=== PATIENT | female | born 1945 | race Caucasian/White ===

== ENCOUNTER 2018-12-24 18:08 | Observation (INO) | payer MEDICARE, BC, OTHER ==
--- NOTE | 2018-12-24 19:13 | RAD ---
PORTABLE CHEST 12/24/18 PROVIDED CLINICAL HISTORY: Dyspnea. FINDINGS: Comparison 08/14/15. The cardiac silhouette appears enlarged. Prominence of the pulmonary vasculature and pulmonary inte rstitium. Left subclavian cardiac pacing device in similar position. No focal consolidation, pleural fluid or pneumothorax apparent. Poor visualization of the left hemidiaphragm is likely on the basis of patient body habitus and cardiomegaly. Left basilar pleural and/or parenchymal opacity cannot be e ntirely excluded. IMPRESSION: Cardiomegaly and prominence of the pulmonary vasculature. Correlate with concerns for congestive kadi lure. POS: JOSELYN
[2018-12-24 19:24] LABS: #Eosinphils 0.1 thou/uL (0.0-0.7); #Lymphocytes 0.9 thou/uL (1.20-3.40); #Monocytes 0.3 thou/uL (0.11-0.59); #Neutrophils 3.5 thou/uL (1.40-6.50); %Basophils 0.7 % (0.0-1.0); %Eosinophils 2.1 % (0.0-10.0); %Lymphocytes 18.1 % (21.0-51.0); %Monocytes 5.2 % (0.0-10.0); Hemoglobin 9.6 g/dL (12.0-16.0); Mean Corpuscular HGB CONC 30.7 g/dL (32.0-36.0); Mean Corpuscular Hemoglobin 31.9 pg (27.0-31.0); Mean Platelet Volume 9.1 fL (7.4-10.4); Platelet Count 214 thou/uL (130-400); RBC Distribution Width 15.6 % (11.5-14.5); White Blood Cell (WBC) Count 4.7 thou/uL (4.8-10.8)
[2018-12-24 19:45] LABS: ALT (SGPT) 27 U/L (8-55); AST (SGOT) 87 U/L (5-34); Albumin 2.7 g/dL (3.4-4.8); Alkaline Phosphatase 230 U/L (40-150); Anion Gap 15 mmol/L (10-20); BUN (Urea Nitrogen) 28 mg/dL (9.8-20.1); Bilirubin, Total 0.8 mg/dL (0.2-1.2); Calc. Creatinine Clearance 0 mL/min (70-130); Calcium 7.7 mg/dL (7.8-10.44); Carbon Dioxide 25 mmol/L (23-31); Chloride 101 mmol/L (98-107); Estimated GFR-MDRD 55; Globulin 3.2 g/dL (2.4-3.5); Glucose 112 mg/dL (83-110); Potassium 4.3 mmol/L (3.5-5.1); Protein, Total 5.9 g/dL (6.0-8.3); Sodium 137 mmol/L (136-145)
[2018-12-24] MEDS ORDERED: Furosemide 40 MG/4 ML VIAL ONE (20:56)
[2018-12-24 23:15] LABS: Troponin I Less than 0.010 ng/mL (< 0.028)
[2018-12-24 23:37] VITALS: BMI 30.7
[2018-12-25 02:37] LABS: Troponin I Less than 0.010 ng/mL (< 0.028)
[2018-12-25] MEDS ORDERED: HYDROcodone/Acetaminophen 10/325 mg Tablet PO PRN (08:50)
[2018-12-25] MEDS ORDERED: Acetaminophen 325 MG TAB PO PRN (09:05)
[2018-12-25] MEDS ORDERED: Calcium Carbonate 500 MG ChewTAB PO PRN (09:05)
[2018-12-25] MEDS ORDERED: Nitroglycerin 0.4 MG TAB (25 Tab Bottle) PO PRN (09:09)
[2018-12-25] MEDS ORDERED: cloNIDine 0.1 MG TAB PO PRN (09:10)
[2018-12-25] MEDS ORDERED: Diazepam 5 MG TAB PO PRN (10:12)
[2018-12-25] MEDS ORDERED: Aspirin 81 mg Enteric Coated Tablet PO SCH (10:30)
[2018-12-25] MEDS ORDERED: Spironolactone 25 MG TAB PO SCH (10:30)
[2018-12-25] MEDS ORDERED: Multivit, Therapeutic 1 TAB PO SCH (10:30)
[2018-12-25] MEDS ORDERED: Gabapentin 300 MG CAP PO SCH ×2 (10:30→15:00)
[2018-12-25] MEDS: Apixaban 5 MG TAB PO SCH ×2 (10:30→20:18)
[2018-12-25] MEDS ORDERED: Lisinopril 5 MG TAB PO SCH (10:30)
[2018-12-25] MEDS ORDERED: Folic Acid 1 MG TAB PO SCH (10:30)
[2018-12-25] MEDS: Furosemide 40 MG/4 ML VIAL SLOW IVP SCH ×2 (10:30→16:14)
[2018-12-25] MEDS ORDERED: Carvedilol 6.25 MG TAB PO SCH ×2 (10:30→21:00)
[2018-12-25] MEDS ORDERED: FLUoxetine HCl 20 MG CAP PO SCH (10:30)
[2018-12-25] MEDS ORDERED: Sotalol HCl 80 MG TAB PO SCH (10:30)
[2018-12-25] MEDS: Ipratropium Bromide 2.5 ml Neb NEB SCH ×4 (11:12→22:12)
[2018-12-25] MEDS: Mometasone/Formoterol 120 PUFF INHALER INH SCH (18:33)
[2018-12-25] MEDS: Sotalol HCl 80 MG TAB PO SCH (20:19)
[2018-12-25] MEDS: Lisinopril 5 MG TAB PO SCH (20:19)
[2018-12-25] MEDS: FLUoxetine HCl 20 MG CAP PO SCH (20:19)
[2018-12-25] MEDS: Carvedilol 6.25 MG TAB PO SCH (20:20)
[2018-12-25] MEDS: Senokot S 8.6-50 MG TAB PO SCH (20:20)
[2018-12-26] MEDS: Furosemide 40 MG/4 ML VIAL SLOW IVP SCH ×2 (00:37→09:29)
[2018-12-26] MEDS: Ipratropium Bromide 2.5 ml Neb NEB SCH ×2 (02:25→08:03)
[2018-12-26 04:41] LABS: #Basophils 0.1 thou/uL (0.0-0.2); #Eosinphils 0.2 thou/uL (0.0-0.7); #Lymphocytes 1.6 thou/uL (1.20-3.40); #Monocytes 0.7 thou/uL (0.11-0.59); #Neutrophils 4.6 thou/uL (1.40-6.50); %Basophils 0.9 % (0.0-1.0); %Eosinophils 2.6 % (0.0-10.0); %Lymphocytes 22.4 % (21.0-51.0); %Monocytes 9.4 % (0.0-10.0); %Neutrophils 64.7 % (42.0-75.0); Hemoglobin 9.8 g/dL (12.0-16.0); Mean Corpuscular HGB CONC 31.4 g/dL (32.0-36.0); Mean Corpuscular Hemoglobin 31.9 pg (27.0-31.0); Mean Platelet Volume 8.5 fL (7.4-10.4); Platelet Count 224 thou/uL (130-400); Red Blood Cell (RBC) Count 3.06 mill/uL (4.20-5.40); White Blood Cell (WBC) Count 7.1 thou/uL (4.8-10.8)
[2018-12-26 05:01] LABS: ALT (SGPT) 25 U/L (8-55); AST (SGOT) 63 U/L (5-34); Alkaline Phosphatase 192 U/L (40-150); Anion Gap 14 mmol/L (10-20); BUN (Urea Nitrogen) 26 mg/dL (9.8-20.1); Bilirubin, Total 0.8 mg/dL (0.2-1.2); Calc. Creatinine Clearance 77 mL/min (70-130); Calcium 8.4 mg/dL (7.8-10.44); Carbon Dioxide 29 mmol/L (23-31); Chloride 98 mmol/L (98-107); Estimated GFR-MDRD 55; Globulin 3.3 g/dL (2.4-3.5); Glucose 99 mg/dL (83-110); Magnesium 1.5 mg/dL (1.6-2.6); Potassium 3.2 mmol/L (3.5-5.1); Protein, Total 6.3 g/dL (6.0-8.3); Sodium 138 mmol/L (136-145)
[2018-12-26 05:23] VITALS: TEMP 97.6
--- NOTE | 2018-12-26 07:06 | PDOC.EVN ---
Event Note - Event Note Event Note: H&P dictated on 12/25
[2018-12-26] MEDS ORDERED: Magnesium 2 GM/50 ML 2 GM in Premix Bag 1 BAG IVPB SCH (07:30)
[2018-12-26 07:43] LABS: Phosphorus 2.8 mg/dL (2.3-4.7)
[2018-12-26] MEDS: Mometasone/Formoterol 120 PUFF INHALER INH SCH (08:13)
[2018-12-26] MEDS ORDERED: Folic Acid 1 MG TAB PO SCH (09:00)
[2018-12-26] MEDS ORDERED: Aspirin 81 mg Enteric Coated Tablet PO SCH (09:00)
[2018-12-26] MEDS ORDERED: Spironolactone 25 MG TAB PO SCH ×2 (09:00)
[2018-12-26] MEDS ORDERED: Multivit, Therapeutic 1 TAB PO SCH ×2 (09:00)
[2018-12-26] MEDS: Potassium Chloride 20 MEQ TAB PO SCH ×2 (09:19→10:33)
[2018-12-26] MEDS: Apixaban 5 MG TAB PO SCH (09:20)
[2018-12-26] MEDS: FLUoxetine HCl 20 MG CAP PO SCH (09:21)
[2018-12-26] MEDS: Carvedilol 6.25 MG TAB PO SCH (09:21)
[2018-12-26] MEDS: Senokot S 8.6-50 MG TAB PO SCH (09:22)
[2018-12-26] MEDS: Lisinopril 5 MG TAB PO SCH (09:22)
[2018-12-26] MEDS: Sotalol HCl 80 MG TAB PO SCH (09:23)
[2018-12-26 09:25] VITALS: BP 123/68
--- NOTE | 2018-12-26 15:09 | HP ---
PRIMARY CARE PHYSICIAN: Dr. Angel Child. PRIMARY SUPERVISOR AREA: Dr. Morris at [facility]. CHIEF COMPLAINT: Shortness of breath. HISTORY OF PRESENT ILLNESS: The patient is a 73-year-old white female with coronary artery disease, sick sinus syndrome, status post pacemaker, paroxysmal atrial fibrillation, on anticoagulation, and chronic systolic heart failure with ejection fraction of 40% range, presented to the hospital with above complaints. The patient was recently diagnosed with swallow dysfunction at [facility]. A barium swallow was ordered. She has dysphagia to both solids and liquids. Yesterday, she has sudden onset of shortness of breath when she was walking to the bedroom from the bathroom. She was cyanotic according to her . She is currently on 2 to 3 L of home oxygen. There was no significant wheezing, chest pain, palpitations, or syncope reported. The patient also noticed bilateral lower extremity swelling over the last 2 to 3 days. She also gets short of breath on minimal exertion. She is compliant with all of her medications including Lasix, spironolactone, and lisinopril. She is also on sotalol for AFib. She has not been eating and drinking well recently due to swallow dysfunction. No fever or chills or cough reported. The patient received albuterol nebulizer treatment, IV steroids, 2 g magnesium, and IV fluid by EMS prior to ER arrival. The symptoms partially improved with above measures. Initial vitals per EMS showed pulse rate of 120 with respirations of 34, and blood pressure of 153/113. PAST MEDICAL HISTORY: 1. Chronic systolic heart failure, ejection fraction 40% range. The patient had an echocardiogram on November 12, 2018, that showed ejection fraction of 40% with global hypokinesis and mild diastolic dysfunction. She also had cfco-wv-czfybmhj tricuspid regurgitation. 2. Paroxysmal atrial fibrillation, on anticoagulation. 3. Obstructive sleep apnea, on CPAP. 4. Chronic hypoxic respiratory failure, on home oxygen. 5. Chronic obstructive pulmonary disease. 6. History of pleural effusion, requiring thoracentesis. 7. Dyam-qc-ooziibgt tricuspid regurgitation. 8. Rheumatoid arthritis. 9. Hypertension. 10. Peripheral neuropathy. 11. Chronic low back pain. 12. Depression. 13. Coronary artery disease, status post stent placement and TN. 14. Pulmonary hypertension. 15. Sick sinus syndrome, status post pacemaker. 16. CKD, stage 3. 17. Seasonal allergies. 18. Intolerant to amiodarone due to pulmonary disease. 19. Sensorineural bilateral hearing loss. 20. Recent diagnosis of swallow dysfunction, scheduled for barium swallow next week. 21. Mild cognitive deficit. 22. History of CVA without deficits. 23. Visual disturbance. PAST SURGICAL HISTORY: 1. Cardiac catheterization. 2. Pacemaker placement. 3. Tonsillectomy. 4. Thoracentesis. 5. Total abdominal hysterectomy. 6. Cholecystectomy. 7. Back surgery. CURRENT HOME MEDICATIONS: Family to bring accurate list of medications. The patient is unable to recall any of her home medications. She states that she is compliant with Eliquis, Lasix, lisinopril, and Aldactone. We will verify with when he arrives. ALLERGIES: NO KNOWN DRUG ALLERGIES. SOCIAL HISTORY: The patient currently lives at home with her family. Her is the decision maker. She quit smoking in 1985. She smoked up to one pack a day. She is full code. FAMILY HISTORY: Heart disease runs in the family. Father had CVA. REVIEW OF SYSTEMS: All other review of systems were reviewed and were found negative. PHYSICAL EXAMINATION: VITAL SIGNS: In the emergency room showed temperature 98.3, respirations 24, pulse rate of 81, and blood pressure of 125/85 with O2 saturation of 100% on 3 L nasal cannula. GENERAL: A 73-year-old female in mild respiratory distress, able to complete short phrases. HEENT: Head; atraumatic, normocephalic. Sclerae are anicteric. Moist mucous membrane. No oral lesion. NECK: Supple. No carotid bruit. JVD elevated. LUNGS: Showed bibasilar rales with scattered rhonchi. No wheezing appreciated. Minimal accessory muscle use. HEART: S1 and S2 present. Regular rate and rhythm. 2/6 systolic murmur over the mitral area. No heaves or pulsation. ABDOMEN: Soft and nontender. Bowel sounds present. No rebound or guarding. EXTREMITIES: 2+ edema in bilateral lower extremity. SKIN: Warm and dry. LYMPH NODES: No palpable lymph nodes in the neck. PERIPHERAL VASCULAR: Radial pulses palpable bilaterally. MUSCULOSKELETAL: No joint swelling or tenderness. SKIN: Warm and dry. PSYCHIATRY: Normal affect. Alert, awake, and oriented x3. NEUROLOGIC: Grossly nonfocal. Moves all 4 extremities. LABORATORY FINDINGS: WBC 4.7, hemoglobin 9.6, hematocrit 31.2, and platelet of 214. Chemistry showed sodium 137, potassium 4.3, chloride 101, bicarb 25, BUN 28, creatinine 0.9, and albumin 2.7. BNP was 4286. Troponin was negative. EKG by my review showed paced rhythm. Chest x-ray by my review showed pulmonary vascular congestion. There was no definite infiltrate. IMPRESSION: 1. Acute on chronic systolic/diastolic heart failure exacerbation, ACC, stage C. 2. Paroxysmal atrial fibrillation, on anticoagulation. 3. Coronary artery disease with stent placement to left anterior descending. 4. History of myocardial infarction. 5. Chronic obstructive pulmonary disease. 6. Chronic hypoxic respiratory failure, on home oxygen. 7. History of cerebrovascular accident with residual cognitive deficits. 8. Depression, mild, stable. 9. Hypertension. 10. Tmpu-by-nvtupteq tricuspid regurgitation. 11. Sick sinus syndrome, status post pacemaker. 12. Swallow dysfunction followed at [facility]. 13. Peripheral neuropathy. 14. Pulmonary hypertension. 15. Chronic low back pain. 16. Obstructive sleep apnea, on CPAP. 17. Intolerance to amiodarone due to pulmonary disease. PLAN: The patient will be monitored in the telemetry unit. We will start her on IV diuretics. We will continue other home medications including lisinopril, Eliquis, sotalol, and Aldactone once verified. Fluid restriction. Education on congestive heart failure. Continue O2 supplementation with p.r.n. nebulizer treatment. We will monitor labs on the daily basis. Plan of care was discussed with the patient in detail. She stated understanding. Job ID: [id number]
--- NOTE | 2018-12-27 13:02 | DIS ---
DATE OF ADMISSION: 12/24/2018 DATE OF DISCHARGE: 12/26/2018 DISCHARGE DISPOSITION: Home. FOLLOWUP: Follow up with Dr. Angel Child in 1 week. Follow up with Dr. Eduar Morris as scheduled. ALLERGIES: THE PATIENT IS ALLERGIC TO AUGMENTIN. THE PATIENT WAS SEEN AND EXAMINED ON THE DAY OF DISCHARGE. DENIES ANY NEW COMPLAINTS. NO CHEST PAIN, SHORTNESS OF BREATH, OR PALPITATIONS REPORTED. WEIGHT ON THE DAY OF DISCHARGE IS 213 POUNDS FROM 216 POUNDS. DISCHARGE MEDICATIONS: Same as admission medications, no changes were made. BRIEF HOSPITAL COURSE: The patient is a 73-year-old white female with coronary artery disease, paroxysmal atrial fibrillation on anticoagulation, chronic systolic heart failure with ejection fraction 40% range, and sick sinus syndrome status post pacemaker, presented to the hospital with shortness of breath. Please refer to the history and physical for further details. The patient was admitted to the hospital with a diagnosis of congestive heart failure exacerbation. She was started on IV Lasix 40 mg every 8 hourly with good improvement. After diuresis, the symptoms considerably improved. Weight on the day of discharge is 213 pounds from 216 pounds. Symptomatically, she feels great and is requesting to be discharged. She has a followup appointment with Dr. Morris. She also had potassium of 3.2 and magnesium 1.5 on the day of discharge. She received 2 g IV magnesium along with potassium supplementation. She will benefit from a repeat labs as outpatient. Her BNP on admission was 4286. Her creatinine on the day of discharge is 0.99. FINAL DIAGNOSES: 1. Acute on chronic systolic/diastolic heart failure. 2. Paroxysmal atrial fibrillation on anticoagulation. 3. Coronary artery disease status post left anterior descending stent placement. 4. History of myocardial infarction in the past. 5. Chronic obstructive pulmonary disease. 6. Chronic hypoxic respiratory failure on home oxygen. 7. History of cerebrovascular accident with residual cognitive deficit. 8. Depression, mild, stable. 9. Hypertension. 10. Intolerance to amiodarone due to pulmonary disease. 11. Obstructive sleep apnea on continuous positive airway pressure. 12. Chronic low back pain. 13. Pulmonary hypertension. 14. Peripheral neuropathy. 15. Swallow dysfunction. The patient is scheduled for a barium swallow later this week. 16. Sick sinus syndrome status post pacemaker. 17. Yfxw-nv-mkzvxwcj mitral regurgitation. PLAN: Plan of care was discussed with the patient and the family at the bedside, they stated understanding. Job ID: [id number]
== END 2018-12-26 11:11 | disposition home or self-care (01) ==
LOC: ERS 18:08 → 2SW 20:30
PROVIDERS: ADMIT Hospitalist; ATTEND Hospitalist
DX: I13.0 Hypertensive heart and chronic kidney disease with heart failure and stage 1 through stage 4 chronic kidney disease, or unspecified chronic kidney disease (principal); N18.3 Chronic kidney disease, stage 3 (moderate); I50.43 Acute on chronic combined systolic (congestive) and diastolic (congestive) heart failure; I48.0 Paroxysmal atrial fibrillation; I25.10 Atherosclerotic heart disease of native coronary artery without angina pectoris; I25.2 Old myocardial infarction; J96.11 Chronic respiratory failure with hypoxia; F32.9 Major depressive disorder, single episode, unspecified; J44.9 Chronic obstructive pulmonary disease, unspecified; T46.2X5A Adverse effect of other antidysrhythmic drugs, initial encounter; G47.33 Obstructive sleep apnea (adult) (pediatric); M54.5 Low back pain; G89.29 Other chronic pain; I27.20 Pulmonary hypertension, unspecified; I49.5 Sick sinus syndrome; F41.9 Anxiety disorder, unspecified; M06.9 Rheumatoid arthritis, unspecified; Z87.891 Personal history of nicotine dependence; Z86.73 Personal history of transient ischemic attack (TIA), and cerebral infarction without residual deficits; Z95.5 Presence of coronary angioplasty implant and graft; Z99.81 Dependence on supplemental oxygen; Z99.89 Dependence on other enabling machines and devices; Z79.01 Long term (current) use of anticoagulants; Z88.0 Allergy status to penicillin; Z88.1 Allergy status to other antibiotic agents; Z79.899 Other long term (current) drug therapy
CPT/HCPCS: 71045; 80053 ×2; 83735; 83880; 84100; 84484 ×3; 85025 ×2; 87040; 93005; 93798; 94640 ×5; 94760; 96374; 96375; 96376 ×2; 99285; G0378 ×2; 36415; J1940; J3475; J7620

== ENCOUNTER 2019-06-09 17:17 | Inpatient (IN) | payer MEDICARE, BC, OTHER ==
[~2019-06-09 17:17] MED LIST: Iopamidol-370 76% 500 ML 1 ML ONE
[2019-06-09 17:28] LABS: Actual Bicarbonate (HCO3a) 17.9 mEq/L (22-28); Analyzer IN Cardio ER; Base Excess (BEa) -7.9 mEq/L (-2.0 to +3.0); CO2 Tension 37.8 mmHg (35.0-45.0); Calcium, Ionized 1.16 mmol/L (1.12-1.30); Carboxyhemoglobin (COHb) 1.2 gm% (0.0-3.0); Hemoglobin (Hb) 14.1 g/dL (12.0-16.0); O2 Tension (PaO2) 174.3 mmHg (> 70.0); Potassium - ABG Lab 4.98 mmol/L (3.70-5.30); pH, Arterial 7.29 (7.35-7.45)
[2019-06-09 17:34] LABS: Puncture Site RBRACH
[2019-06-09 18:13] LABS: #Eosinphils 0.1 thou/uL (0.0-0.7); #Lymphocytes 1.4 thou/uL (1.20-3.40); #Monocytes 0.4 thou/uL (0.11-0.59); #Neutrophils 4.4 thou/uL (1.40-6.50); %Basophils 0.4 % (0.0-1.0); %Eosinophils 1.9 % (0.0-10.0); %Lymphocytes 22.5 % (21.0-51.0); %Monocytes 5.8 % (0.0-10.0); %Neutrophils 69.5 % (42.0-75.0); Hemoglobin 13.2 g/dL (12.0-16.0); Mean Corpuscular HGB CONC 30.9 g/dL (32.0-36.0); Mean Corpuscular Hemoglobin 29.6 pg (27.0-31.0); Mean Corpuscular Volume 95.9 fL (78.0-98.0); Mean Platelet Volume 8.3 fL (7.4-10.4); Platelet Count 322 thou/uL (130-400); RBC Distribution Width 16.1 % (11.5-14.5); Red Blood Cell (RBC) Count 4.48 mill/uL (4.20-5.40); White Blood Cell (WBC) Count 6.3 thou/uL (4.8-10.8)
--- NOTE | 2019-06-09 18:14 | RAD ---
PORTABLE CHEST ONE VIEW: 06/09/19 at 6:01 p.m. HISTORY: Dyspnea, COPD. Patient on C-Pap. FINDINGS/IMPRESSION: Comparison made with exam of 12/24/18. The heart is enlarged. Left sided pacing device remains in place. The lungs are well expanded with st able chronic changes. No lobar consolidation, pneumothoraces, jenae pulmonary edema, or large effusio ns are seen. POS: JEANETTEH
[2019-06-09 18:21] LABS: INR-International Normal Ratio 2.2; Prothrombin Time 24.5 SEC (12.0-14.7)
[2019-06-09 18:38] LABS: ALT (SGPT) 16 U/L (8-55); AST (SGOT) 68 U/L (5-34); Albumin 3.5 g/dL (3.4-4.8); Alkaline Phosphatase 203 U/L (40-110); Anion Gap 22 mmol/L (10-20); BUN (Urea Nitrogen) 16 mg/dL (9.8-20.1); Bilirubin, Total 1.4 mg/dL (0.2-1.2); CK (CPK) 15 U/L (29-168); Calc. Creatinine Clearance 0 mL/min (70-130); Calcium 8.7 mg/dL (7.8-10.44); Carbon Dioxide 19 mmol/L (23-31); Chloride 103 mmol/L (98-107); Estimated GFR-MDRD 41; Globulin 2.9 g/dL (2.4-3.5); Glucose 133 mg/dL (83-110); Potassium 4.7 mmol/L (3.5-5.1); Protein, Total 6.4 g/dL (6.0-8.3); Sodium 139 mmol/L (136-145)
[2019-06-09] MEDS ORDERED: Acetaminophen 325 MG TAB PO PRN (19:44)
[2019-06-09] MEDS ORDERED: Bisacodyl 10 MG SUPP PR PRN (19:44)
[2019-06-09] MEDS ORDERED: Bisacodyl 5 MG TAB PO PRN (19:44)
[2019-06-09] MEDS ORDERED: HYDROcodone/Acetaminophen 5/325 mg Tablet PO PRN (19:44)
--- NOTE | 2019-06-09 20:02 | PDOC.HHP ---
Hospitalist HPI - History of Present Illness Shortness of breath History of Present Illness: Patient is a 74 year old female with PMH CHF, afib, pacemaker, COPD who presents to ED for shortness of breath which onset over course of an hour around 3pm, reported she became cyanotic and less responsive, he called EMS and she was placed on BIPAP and given neb treatments x 2, brought to our ED. She normally goes to [facility] [place] and sees a wood carving lathe operator and unit aid there, she saw cardiology last month, had echo but they do not remember EF, she takes lasix and eliquius amongst other cardiac medications. She has 3 stents. No chest pain associated with current symptoms, no recorded fevers. In ED, patient maintained on BIPAP, CXR reported as without acute findings by radiology, ABG with hypoxia and wide Aa gradient, labs with high NT proBNP, sound physician consulted for admission Hospitalist ROS - Review of Systems ROS unobtainable: due to mental status Constitutional: denies: fever, chills Eyes: denies: vision change, redness ENT: denies: ear pain, mouth swelling, throat pain Respiratory: reports: shortness of breath. denies: cough, pleuritic pain, wheezing Cardiovascular: denies: chest pain, palpitations Gastrointestinal: denies: nausea, vomiting, abdominal pain, diarrhea Genitourinary: denies: dysuria, frequency Skin: denies: rash, lesions Neurological: denies: weakness, numbness All other systems reviewed; all pertinent +/- noted in HPI/Subj Hospitalist History - Past Medical History Other Medical History: CAD, A-Fib, Pulmonary HTN, Sick Sinus Syndrome,, Past medical history includes cardiac history, congestive heart failure, Past medical history includes history of hypertension.COPD. - Past Surgical History Other Surgical History: stent x 3, pacemaker - Family History Other Family History: reviewed and noncontributory - Social History Smoking Status: Never smoker Alcohol: reports: None Drugs: reports: none - Exam General Appearance: NAD, awake alert General - other findings: on bipap Eye: PERRL, anicteric sclera ENT: normocephalic atraumatic, moist mucosa Neck: supple, no JVD Heart: RRR, no murmur, no gallops, no rubs Respiratory: CTAB, no wheezes, no rales, no ronchi Respiratory - other findings: on bipap no wheezes or crackles Gastrointestinal: soft, non-tender, non-distended, normal bowel sounds Extremities: no cyanosis, no clubbing, 2+ LE edema Skin: no lesions, no rashes Neurological: cranial nerve grossly intact, normal sensation to touch, no focal deficits Musculoskeletal: normal tone, normal strength Psychiatric: normal affect, normal behavior, A&O x 3 Hospitalist Results - Labs Result Diagrams: 06/09/19 17:55 06/09/19 17:55 Lab results: WBC 6.3 thou/uL (4.8-10.8) 06/09/19 17:55 Hgb 13.2 g/dL (12.0-16.0) 06/09/19 17:55 Hct 42.9 % (36.0-47.0) 06/09/19 17:55 MCV 95.9 fL (78.0-98.0) 06/09/19 17:55 Plt Count 322 thou/uL (130-400) 06/09/19 17:55 Neutrophils % 69.5 % (42.0-75.0) 06/09/19 17:55 ABG pH 7.29 (7.35-7.45) L 06/09/19 17:30 ABG pCO2 37.8 mmHg (35.0-45.0) 06/09/19 17:30 ABG pO2 174.3 mmHg (> 70.0) H 06/09/19 17:30 Sodium 139 mmol/L (136-145) 06/09/19 17:55 Potassium 4.7 mmol/L (3.5-5.1) 06/09/19 17:55 Chloride 103 mmol/L (98-107) 06/09/19 17:55 Carbon Dioxide 19 mmol/L (23-31) L 06/09/19 17:55 BUN 16 mg/dL (9.8-20.1) 06/09/19 17:55 Creatinine 1.27 mg/dL (0.6-1.1) H 06/09/19 17:55 Glucose 133 mg/dL (83-110) H 06/09/19 17:55 Calcium 8.7 mg/dL (7.8-10.44) 06/09/19 17:55 Total Bilirubin 1.4 mg/dL (0.2-1.2) H 06/09/19 17:55 AST 68 U/L (5-34) H 06/09/19 17:55 ALT 16 U/L (8-55) 06/09/19 17:55 Alkaline Phosphatase 203 U/L (40-110) H 06/09/19 17:55 Creatine Kinase 15 U/L (29-168) L 06/09/19 17:55 Troponin I Less than 0.010 ng/mL (< 0.028) 06/09/19 17:55 B-Natriuretic Peptide 6295.1 pg/mL (0-100) H 06/09/19 17:56 Serum Total Protein 6.4 g/dL (6.0-8.3) 06/09/19 17:55 Albumin 3.5 g/dL (3.4-4.8) 06/09/19 17:55 - EKG Interpretation EKG: reviewed, paced, 80 bpm, no acute ST changes Hospitalist H&P A/P - Plan Plan: Patient is a 74 year old female with PMH CHF, afib, pacemaker, COPD who presents to ED for shortness of breath, being treated for: # acute hypoxic respiratory failure - with unimpressive CXR and ABG with wide A- a gradient, will do CT chest to rule out PE, patient on BIPAP at 10/5 and will be admitted to IMCU, elevated NT proBNP suggests CHF as contributing factor and will be treated for CHF exacerbation, no wheezes but with h/o COPD will initiate empiric treatment for exacerbation - admit to IMCU - lasix 80mg IV q8h - echo, consult cardiology and pulmonology - follow up CT chest - empiric solu-medrol and scheduled neb treatments, will start zosyn # acute and chronic CHF - order echo, consult cardiology, diurese as above, unknown EF as she normally goes to [place] # COPD w/ possible exacerbation - steroids, abx, nebs as above # atrial fibrillation w/ pacemaker - EKG w/ paced rhythm, continue beta rosita and eliquis 52 minutes critical care time, organ system failure requiring BIPAP to sustain life.
[2019-06-09] MEDS ORDERED: Diazepam 5 MG TAB PO PRN (21:16)
[2019-06-09] MEDS ORDERED: Mometasone/Formoterol 120 PUFF INHALER INH SCH (21:30)
[2019-06-09 21:48] LABS: Troponin I 0.051 ng/mL (< 0.028)
--- NOTE | 2019-06-09 22:24 | CT ---
Exam: CT angiogram of the chest HISTORY: Dyspnea. COPD. Congestive heart failure. COMPARISON: 07/25/2010 TECHNIQUE: CT angiogram of the chest is performed in the axial plane. Three-dimensional reformatted i mages are submitted for interpretation FINDINGS: Mediastinum: No mass, lymphadenopathy or hematoma. HEART: Cardiomegaly. No significant pericardial fluid. Reflux of contrast into the inferior vena cava suggesting right heart failure. Aorta: No aneurysm or dissection Upper solid abdominal viscera: No abnormality enhancement. Trachea and central bronchi: Patent Pleural spaces: Small bilateral pleural effusions. Lung parenchyma: Linear opacities in both lower lobes likely representing areas of scarring and atele ctasis. Linear opacities in the lingula and middle lobe also representing areas of scarring and atelectasis. More focal opacification in the middle lobe, measuring 1.7 cm x 0.7 cm. Focal infiltrate is favored. Patchy groundglass opacities are noted. Pneumothorax: None Osseous structures: No lytic or blastic lesions Pulmonary arteries: Adequate contrast opacification pulmonary arterial system to the level of segment al arteries. No filling defect to suggest pulmonary embolism IMPRESSION: 1. No evidence of pulmonary artery embolism to the level of segmental arteries 2. Cardiomegaly, patchy groundglass opacities and pleural effusion. Congestive heart failure. 3. Right heart failure. 4. Focal opacity in the middle lobe likely representing infiltrate. Continued surveillance to ensure resolution.
[2019-06-09] MEDS: Furosemide 100 MG/10 ML VIAL SLOW IVP SCH (22:58)
[2019-06-09] MEDS: methylPREDNISolone Sod Succ 40 MG VIAL IVP SCH (23:00)
[2019-06-09] MEDS: Piperacillin/Tazobactam 3.375 GM in Sodium Chloride 0.9% 100 ML IVPB SCH (23:01)
[2019-06-09] MEDS: Apixaban 5 MG TAB PO SCH (23:01)
[2019-06-09] MEDS: Famotidine 20 MG TAB PO SCH (23:01)
[2019-06-09] MEDS: Sotalol HCl 80 MG TAB PO SCH (23:02)
[2019-06-09] MEDS: Gabapentin 300 MG CAP PO SCH (23:02)
[2019-06-09] MEDS: Lisinopril 5 MG TAB PO SCH (23:02)
[2019-06-09] MEDS: FLUoxetine HCl 20 MG CAP PO SCH (23:02)
[2019-06-10 02:59] LABS: #Lymphocytes 0.9 thou/uL (1.20-3.40); #Monocytes 0.2 thou/uL (0.11-0.59); #Neutrophils 6.6 thou/uL (1.40-6.50); %Basophils 0.3 % (0.0-1.0); %Eosinophils 0.1 % (0.0-10.0); %Lymphocytes 11.2 % (21.0-51.0); %Monocytes 1.9 % (0.0-10.0); %Neutrophils 86.5 % (42.0-75.0); Hemoglobin 12.8 g/dL (12.0-16.0); Mean Corpuscular HGB CONC 32.2 g/dL (32.0-36.0); Mean Corpuscular Hemoglobin 30.4 pg (27.0-31.0); Mean Corpuscular Volume 94.4 fL (78.0-98.0); Platelet Count 240 thou/uL (130-400); White Blood Cell (WBC) Count 7.7 thou/uL (4.8-10.8)
[2019-06-10 03:22] LABS: Troponin I Less than 0.010 ng/mL (< 0.028)
[2019-06-10 03:37] LABS: Anion Gap 17 mmol/L (10-20); BUN (Urea Nitrogen) 17 mg/dL (9.8-20.1); Calc. Creatinine Clearance 58 mL/min (70-130); Calcium 8.9 mg/dL (7.8-10.44); Carbon Dioxide 24 mmol/L (23-31); Chloride 102 mmol/L (98-107); Estimated GFR-MDRD 47; Glucose 140 mg/dL (83-110); Magnesium 2.2 mg/dL (1.6-2.6); Potassium 3.4 mmol/L (3.5-5.1); Sodium 140 mmol/L (136-145)
[2019-06-10] MEDS: Furosemide 100 MG/10 ML VIAL SLOW IVP SCH (04:52)
[2019-06-10] MEDS: Piperacillin/Tazobactam 3.375 GM in Sodium Chloride 0.9% 100 ML IVPB SCH (05:00)
[2019-06-10] MEDS: methylPREDNISolone Sod Succ 40 MG VIAL IVP SCH ×2 (05:00→11:26)
[2019-06-10] MEDS: Mometasone/Formoterol 120 PUFF INHALER INH SCH ×2 (07:04→19:36)
[2019-06-10] MEDS: Gabapentin 300 MG CAP PO SCH ×3 (08:55→20:35)
[2019-06-10] MEDS: Lisinopril 5 MG TAB PO SCH ×2 (08:55→20:35)
[2019-06-10] MEDS: Famotidine 20 MG TAB PO SCH ×2 (08:55→20:35)
[2019-06-10] MEDS: Apixaban 5 MG TAB PO SCH ×2 (08:55→20:34)
[2019-06-10] MEDS: Spironolactone 25 MG TAB PO SCH (08:55)
[2019-06-10] MEDS: Carvedilol 6.25 MG TAB PO SCH ×2 (08:55→17:55)
[2019-06-10] MEDS: FLUoxetine HCl 20 MG CAP PO SCH ×2 (08:56→20:35)
[2019-06-10] MEDS ORDERED: Furosemide 100 MG/10 ML VIAL SLOW IVP SCH (09:00)
[2019-06-10] MEDS ORDERED: Enoxaparin Sodium 40 MG/0.4 ML SYRINGE SC SCH (09:00)
[2019-06-10 09:38] LABS: Troponin I Less than 0.010 ng/mL (< 0.028)
[2019-06-10] MEDS: Azithromycin 500 MG in Sodium Chloride 0.9% 250 ML 250 ML IVPB SCH (09:55)
[2019-06-10] MEDS: Sotalol HCl 80 MG TAB PO SCH ×2 (11:26→21:08)
[2019-06-10] MEDS: cefTRIAXone\\ROCEPHIN 2 GM in Sodium Chloride 0.9% 100 ML IVPB SCH (11:26)
--- NOTE | 2019-06-10 13:48 | PDOC.HOSPP ---
- Subjective Subjective: Seen and examined in intermediate medical care floor. Patient has been successfully weaned off the BiPAP by respiratory therapist. Patient saturating well on low-flow nasal cannula. Patient is talking in full sentences and in good spirits, making jokes. Patient states that she is feeling significantly better than when she arrived. Mild cough. Denies pain. All questions answered in detail. Patient's only other complaint at this time is that she is hungry. - Objective Vital Signs & Weight: Vital Signs (12 hours) Temp Pulse Resp BP Pulse Ox 06/10/19 12:00 98.4 F 06/10/19 11:26 80 157/91 H 06/10/19 08:55 80 157/91 H 06/10/19 07:06 97.6 F 06/10/19 07:04 80 22 H 95 06/10/19 03:09 97.0 F L Weight Weight 184 lb 12.8 oz Most Recent Monitor Data Heart Rate from ECG 80 NIBP 141/76 NIBP BP-Mean 97 Respiration from ECG 17 SpO2 96 I&O: 06/09/19 06/10/19 06/11/19 06:59 06:59 06:59 Intake Total 248 364 Output Total 2150 1200 Balance -8102 -036 Result Diagrams: 06/10/19 02:51 06/10/19 02:51 Radiology Reviewed by me: Yes Hospitalist ROS - Review of Systems All other systems reviewed; all pertinent +/- noted in HPI/Subj - Medication Medications: Active Medications Generic Name Dose Route Start Last Admin Trade Name Freq PRN Reason Stop Dose Admin Apixaban 5 mg 06/09/19 21:00 06/10/19 08:55 Eliquis PO 5 mg BID MANSI Administration Carvedilol 6.25 mg 06/10/19 08:00 06/10/19 08:55 Coreg PO 6.25 mg BID-WM MANSI Administration Famotidine 20 mg 06/09/19 21:00 06/10/19 08:55 Pepcid PO 20 mg BID MANSI Administration Fluoxetine HCl 20 mg 06/09/19 21:00 06/10/19 08:56 Prozac PO 20 mg BID MANSI Administration Gabapentin 300 mg 06/09/19 21:00 06/10/19 08:55 Neurontin PO 300 mg TID MANSI Administration Azithromycin 500 mg/ Sodium 250 mls @ 250 mls/hr 06/10/19 09:00 06/10/19 09: 55 Chloride IVPB 250 mls Q24HR MANSI Administration Ceftriaxone Sodium 2 gm/ 100 mls @ 100 mls/hr 06/10/19 10:00 06/10/19 11:26 Sodium Chloride IVPB 100 mls Q24HR MANSI Administration Lisinopril 5 mg 06/09/19 21:00 06/10/19 08:55 Zestril PO 5 mg BID MANSI Administration Mometasone Furoate/Formoterol Fumar 2 puff 06/10/19 06:30 06/10/19 07:04 Dulera 200 Mcg/5 Mcg Inhaler INH 2 puff BID-RT MANSI Administration Sodium Chloride 10 ml 06/10/19 09:00 06/10/19 08:56 Flush - Normal Saline IVF 10 ml Q12HR MANSI Administration Sotalol HCl 160 mg 06/09/19 21:00 06/10/19 11:26 Betapace PO 160 mg BID MANSI Administration Spironolactone 25 mg 06/10/19 09:00 06/10/19 08:55 Aldactone PO 25 mg DAILY MANSI Administration - Exam General Appearance: NAD, awake alert Eye: PERRL, anicteric sclera ENT: normocephalic atraumatic, moist mucosa Neck: supple, symmetric, no lymphadenopathy Heart: no murmur, no gallops, no rubs Respiratory: CTAB, no rales, no ronchi, wheezes (mild wheezing scattered) Gastrointestinal: soft, non-tender, non-distended, no guarding, no rigidity Extremities: no edema Skin: no lesions, no rashes Neurological: cranial nerve grossly intact, no focal deficits Musculoskeletal: generalized weakness Psychiatric: normal affect, normal behavior, oriented to person, oriented to place Hosp A/P (1) COPD exacerbation Code(s): J44.1 - CHRONIC OBSTRUCTIVE PULMONARY DISEASE W (ACUTE) EXACERBATION Status: Acute (2) Afib Code(s): I48.91 - UNSPECIFIED ATRIAL FIBRILLATION Status: Acute (3) CHF (congestive heart failure), NYHA class IV Code(s): I50.9 - HEART FAILURE, UNSPECIFIED Status: Acute (4) Pleural effusion Code(s): J90 - PLEURAL EFFUSION, NOT ELSEWHERE CLASSIFIED Status: Acute (5) Respiratory failure Code(s): J96.90 - RESPIRATORY FAILURE, UNSP, UNSP W HYPOXIA OR HYPERCAPNIA Status: Acute (6) Respiratory failure, acute and chronic Code(s): J96.20 - ACUTE AND CHR RESP FAILURE, UNSP W HYPOXIA OR HYPERCAPNIA Status: Acute - Plan Plan: IMCU, stable for medical unit telemetry pulmonology/critical-care consultation, recommendations appreciated cardiology consultation, recommendations appreciated patient initially placed on broad-spectrum IV antibiotics, de-escalated to pulmonary specific antibiotics with infiltrates seen on CT scan of the chest patient placed on IV steroids for possible COPD exacerbation, continue if indicated per pulmonology IV diuretic therapy with IV Lasix cardiomyopathy regimen echocardiogram continue other home medications as able blood sugar control blood pressure control DVT prophylaxis G.I. prophylaxis
--- NOTE | 2019-06-10 14:17 | CON ---
DATE OF CONSULTATION: 06/10/2019 SERVICE: Pulmonary Medicine REASON FOR CONSULTATION: Respiratory failure. HISTORY OF PRESENT ILLNESS: The patient is a 74-year-old white female with past medical history significant for heart failure and COPD. Either way, she was in her usual state of health until about 3 to 4 days ago when she started having increasing dyspnea on exertion and shortness of breath at baseline. She does not have orthopnea because she uses the CPAP. She noted increasing lower extremity swelling. She looked very bad on the day of presentation, and her said that she was blue. As such, EMS Services were contacted. She was found to be hypoxemic, and brought to the emergency department. Overnight, she was diuresed. She is looking much better this morning. She required the BiPAP last night, but once again, she typically uses CPAP in the evening time. She was having some low-grade temperatures, and some congestion in the head and face for the couple of days prior to coming to the hospital. She denies having any significant sick contacts. She denies any sputum production, belly pain, dysuria, frequency, or diarrhea. Otherwise, she is in her usual state of health and has no specific complaints. PAST MEDICAL HISTORY: 1. Coronary artery disease. 2. Atrial fibrillation, paroxysmal. 3. Sick sinus syndrome. 4. Chronic systolic heart failure. 5. Hypertension. 6. COPD. 7. Pulmonary hypertension. PAST SURGICAL HISTORY: 1. Percutaneous coronary intervention x3. 2. Pacemaker. FAMILY HISTORY: Noncontributory. SOCIAL HISTORY: She is a lifelong nonsmoker. She denies any alcohol or illicit drugs. She has no exposure to chemicals, dust, asbestos, or tuberculosis. Her primary car deliverer is at [facility]. ALLERGIES: AMOXICILLIN, CLAVULANIC ACID. REVIEW OF SYSTEMS: General, head, ears, eyes, nose, throat, cardiovascular, respiratory, GI, , musculoskeletal, neurologic, and skin are negative except as mentioned in the HPI. PHYSICAL EXAMINATION: VITAL SIGNS: Afebrile, pulse 80, blood pressure 157/91, respirations 16, and saturation 99% on 3 L nasal cannula. GENERAL: The patient is awake and alert, in no apparent distress. LUNGS: Decent air entry. There is a slightly prolonged expiratory phase. Crackles are noted. HEART: Normal rate. Regular. ABDOMEN: Soft, nontender, and nondistended. Bowel sounds are positive. MUSCULOSKELETAL: No cyanosis or clubbing. There is 1 to 2+ pitting throughout. NEUROLOGIC: Grossly nonfocal. LABORATORY DATA: WBC 7.7, hemoglobin 12.8, and platelets 240,000. INR 2.2. PH 7.29, pCO2 of 37, pO2 of 174 on 50% FiO2 at that time. Creatinine 1.13 and gently downtrending. Basic metabolic profile is otherwise unremarkable except for potassium of 3.4. Troponin is downtrending to 0.01, procalcitonin is elevated, BNP is historic high. Total bilirubin 1.4. Otherwise, liver function studies are not terribly abnormal. CK is unremarkable. Respiratory virus panel is negative. IMAGING STUDIES: CT of the chest demonstrates extensive reflux of contrast into the inferior vena cava. There is 4-chamber dilation of the heart. Bilateral small pleural effusions and pulmonary vascular congestion are both appreciated. The pulmonary artery appears to be enlarged. ASSESSMENT: 1. Acute on chronic hypoxic respiratory failure. 2. Chronic obstructive pulmonary disease with mild exacerbation. 3. Acute on chronic systolic and diastolic heart failure. 4. Pulmonary hypertension, likely owing to left heart disease. 5. Hypokalemia. DISCUSSION AND PLAN: We will continue to diurese the patient to euvolemia. I will replace her potassium and recheck tomorrow morning. Magnesium will also be checked. At this point, she is stable for transition to the floor. She will need to use her CPAP in that location. Steroids will be rapidly deescalated and limited to 5 days. Pulmonary/Critical Care will follow closely. 70 minutes have been devoted to this patient in various activities. I personally reviewed all imaging studies and laboratory data noted within this document. For fifty percent of this time, I was interacting with the patient at the bedside or coordinating care with the care team. For the remainder of the time I was immediately available to the patient in the hospital unit. Job ID: [id number] [facility]
--- NOTE | 2019-06-10 15:27 | CON ---
DATE OF CONSULTATION: 06/10/2019 PRIMARY DIESEL LOCOMOTIVE CRANE OPERATOR: Rohit Mcghee MD at [facility]. REASON FOR CONSULTATION: Heart failure. HISTORY OF PRESENT ILLNESS: Ms. Andersen is a very pleasant 74-year-old white female, who comes to the hospital for shortness of breath. called EMS as she looked purple and could not breathe. EMS got her. Her sats were in the 70s. She was started on supplemental oxygen and brought in. She was evaluated in the ER and diagnosed with both COPD exacerbation and heart failure, so she was admitted and given IV Lasix and she has diuresed quite a bit and she is already feeling better. On my evaluation, she states her breathing has significantly improved. Denies any chest pain, tightness, or pressure. She does have a history of ischemic cardiomyopathy, followed by Dr. Morris. The last time he saw her was about 3 weeks ago. Currently has no other complaints. PAST MEDICAL HISTORY: 1. Coronary artery disease. 2. Paroxysmal atrial fibrillation. 3. Sick sinus syndrome status post pacemaker placement. 4. Chronic systolic heart failure. 5. Hypertension. 6. COPD. 7. Pulmonary hypertension. SURGICAL HISTORY: 1. Percutaneous coronary intervention x3 to the LAD and left circumflex in the past. 2. Pacemaker placement. FAMILY HISTORY: Noncontributory. SOCIAL HISTORY: Never smoked. No alcohol or drugs. ALLERGIES: AMOXICILLIN AND CLAVULANIC ACID. OUTPATIENT MEDICATIONS: 1. Ipratropium and albuterol. 2. Aldactone 25 mg a day. 3. Sotalol 160 mg b.i.d. 4. Multivitamin daily. 5. Melatonin. 6. Magnesium oxide. 7. Loperamide. 8. Lisinopril 5 mg b.i.d. 9. Vicodin p.r.n. 10. Premarin. 11. Nexium. 12. Vitamin B12. 13. Coreg 6.25 b.i.d. 14. Symbicort. 15. Glucosamine and chondroitin. 16. Neurontin. 17. Lasix 40 mg b.i.d. 18. Folic acid. 19. Ferrous sulfate 325 a day. 20. Fluoxetine 20 mg b.i.d. 21. Diazepam. 22. Atorvastatin 10 mg nightly. 23. Eliquis 5 mg b.i.d. REVIEW OF SYSTEMS: A 12-point review of systems was done and was all negative unless stated in the history of present illness. PHYSICAL EXAMINATION: VITAL SIGNS: Temperature 98.4, pulse 80, respiratory rate 17, sat 96% on 2L nasal cannula, and blood pressure 128/64. GENERAL: Awake, alert, and oriented x3, in no distress. HEENT: Normocephalic and atraumatic. NECK: Supple. LUNGS: Reduced breath sounds bilaterally with mild crackles at the bases. CARDIOVASCULAR: S1 and S2. Distant heart sounds. No S3 or S4. No murmurs. ABDOMEN: Soft. Positive bowel sounds. EXTREMITIES: No edema. SKIN: Warm and dry. LABORATORY DATA: Laboratory work was reviewed. CBC with a white count of 6, hemoglobin 13, hematocrit 42, and platelet count of 322. Coags were reviewed. ABG was reviewed. Chemistries were reviewed. Potassium was 3.4 today. Troponin is negative x3. BNP was 6295. Procalcitonin was 4.1. Creatinine has improved from 1.2 to 1.1 with diuresis. Albumin was 3.5. EKG was reviewed. Telemetry was reviewed, paced rhythm. ASSESSMENT AND PLAN: 1. Wchfa-ci-obxharz systolic heart failure. 2. Severe ischemic dilated cardiomyopathy, ejection fraction at 20% to 25% on echo done today. 3. Chronic obstructive pulmonary disease with mild exacerbation. 4. Coronary artery disease, stable. No acute coronary syndrome. PLAN: 1. Continue IV diuresis. We would switch to 40 IV b.i.d. and then wean to 40 p.o. b.i.d. eventually. 2. We will interrogate pacemaker to make sure she is not in atrial fibrillation or has an underlying rhythm that may have precipitated heart failure. 3. Continue other heart failure medications. Thank you for letting us to participate in the care of your patient. We will follow. Job ID: [id number]
[2019-06-10] MEDS: Potassium Chloride 20 MEQ TAB PO SCH ×2 (15:50→17:55)
[2019-06-11 04:26] LABS: Anion Gap 10 mmol/L (10-20); BUN (Urea Nitrogen) 27 mg/dL (9.8-20.1); Calc. Creatinine Clearance 64 mL/min (70-130); Calcium 8.3 mg/dL (7.8-10.44); Carbon Dioxide 32 mmol/L (23-31); Chloride 101 mmol/L (98-107); Estimated GFR-MDRD 54; Glucose 118 mg/dL (83-110); Magnesium 1.8 mg/dL (1.6-2.6); Sodium 139 mmol/L (136-145)
[2019-06-11] MEDS: Furosemide 40 MG/4 ML VIAL SLOW IVP SCH ×2 (04:58→15:26)
[2019-06-11] MEDS: Carvedilol 6.25 MG TAB PO SCH ×2 (08:56→16:42)
[2019-06-11] MEDS: Apixaban 5 MG TAB PO SCH ×2 (08:57→20:22)
[2019-06-11] MEDS: predniSONE 20 MG TAB PO SCH (08:57)
[2019-06-11] MEDS: Azithromycin 500 MG in Sodium Chloride 0.9% 250 ML 250 ML IVPB SCH (08:57)
[2019-06-11] MEDS: Sotalol HCl 80 MG TAB PO SCH ×2 (08:57→20:21)
[2019-06-11] MEDS: Spironolactone 25 MG TAB PO SCH (08:58)
[2019-06-11] MEDS: Famotidine 20 MG TAB PO SCH ×2 (08:58→20:22)
[2019-06-11] MEDS: Lisinopril 5 MG TAB PO SCH ×2 (08:58→20:22)
[2019-06-11] MEDS: Gabapentin 300 MG CAP PO SCH ×3 (08:58→20:22)
[2019-06-11] MEDS: FLUoxetine HCl 20 MG CAP PO SCH ×2 (08:58→20:22)
[2019-06-11] MEDS ORDERED: Furosemide 40 MG/4 ML VIAL SLOW IVP SCH (09:00)
[2019-06-11] MEDS ORDERED: Furosemide 100 MG/10 ML VIAL IVPB SCH (09:00)
[2019-06-11] MEDS: cefTRIAXone\\ROCEPHIN 2 GM in Sodium Chloride 0.9% 100 ML IVPB SCH (09:09)
--- NOTE | 2019-06-11 09:16 | PRG ---
DATE OF SERVICE: 06/11/2019 SUBJECTIVE: Ms. Andersen feels better. She has been diuresing. No chest pain. OBJECTIVE: VITAL SIGNS: Her blood pressure is 127/90, pulse is 80. LUNGS: Clear. CARDIAC: Normal S1. Normal S2. ABDOMEN: Soft and nontender. EXTREMITIES: No edema. ASSESSMENT: 1. Congestive heart failure, systolic, acute on chronic, improving. 2. Previous pacemaker. 3. Coronary artery disease. PLAN: Continue current medical regimen. I believe the patient has a biventricular pacer. The complex is relatively narrow. Job ID: [id number]
[2019-06-11] MEDS: Mometasone/Formoterol 120 PUFF INHALER INH SCH ×2 (09:22→19:37)
--- NOTE | 2019-06-11 13:32 | PDOC.HOSPP ---
- Subjective Subjective: Seen and examined. Somnolence this a.m. Did not sleep well. Patient has her own CPAP, which is available at bedside and had last night however it was hooked up incorrectly and the patient also had nasal cannula on rather than feeding oxygen directly to her CPAP machine. Communication placed respiratory therapist to help assist in the correct usage of her CPAP machine this evening. Patient's at bedside who is in the medical field and retired understands and is happy with plan of care. Overall she is breathing much more comfortably. Denies pain. Tolerating diet. Patient and her have realistic expectations of goals of care. - Objective Vital Signs & Weight: Vital Signs (12 hours) Temp BP Pulse Ox 06/11/19 10:11 97.2 F L 06/11/19 09:22 98 06/11/19 08:56 127/90 06/11/19 07:53 98 06/11/19 07:12 98.0 F 06/11/19 03:26 98.1 F Weight Weight 181 lb Most Recent Monitor Data Heart Rate from ECG 80 NIBP 121/67 NIBP BP-Mean 85 Respiration from ECG 24 SpO2 99 I&O: 06/10/19 06/11/19 06/12/19 06:59 06:59 06:59 Intake Total 248 1954 Output Total 2158 2960 Balance -1636 -275 Result Diagrams: 06/10/19 02:51 06/11/19 03:34 Radiology Reviewed by me: Yes Hospitalist ROS - Review of Systems All other systems reviewed; all pertinent +/- noted in HPI/Subj - Medication Medications: Active Medications Generic Name Dose Route Start Last Admin Trade Name Archie PRN Reason Stop Dose Admin Apixaban 5 mg 06/09/19 21:00 06/11/19 08:57 Eliquis PO 5 mg BID MANSI Administration Carvedilol 6.25 mg 06/10/19 08:00 06/11/19 08:56 Coreg PO 6.25 mg BID-WM MANSI Administration Famotidine 20 mg 06/09/19 21:00 06/11/19 08:58 Pepcid PO 20 mg BID MANSI Administration Fluoxetine HCl 20 mg 06/09/19 21:00 06/11/19 08:58 Prozac PO 20 mg BID MANSI Administration Furosemide 40 mg 06/11/19 06:00 06/11/19 04:58 Lasix SLOW IVP 40 mg 0600,1400 MANSI Administration Gabapentin 300 mg 06/09/19 21:00 06/11/19 08:58 Neurontin PO 300 mg TID MANSI Administration Azithromycin 500 mg/ Sodium 250 mls @ 250 mls/hr 06/10/19 09:00 06/11/19 08: 57 Chloride IVPB 250 mls Q24HR MANSI Administration Ceftriaxone Sodium 2 gm/ 100 mls @ 100 mls/hr 06/10/19 10:00 06/11/19 09:09 Sodium Chloride IVPB 100 mls Q24HR MANSI Administration Lisinopril 5 mg 06/09/19 21:00 06/11/19 08:58 Zestril PO 5 mg BID MANSI Administration Mometasone Furoate/Formoterol Fumar 2 puff 06/10/19 06:30 06/11/19 09:22 Dulera 200 Mcg/5 Mcg Inhaler INH 2 puff BID-RT MANSI Administration Prednisone 20 mg 06/11/19 08:00 06/11/19 08:57 Prednisone PO 06/14/19 08:01 20 mg QAM-WM MANSI Administration Sodium Chloride 10 ml 06/10/19 09:00 06/11/19 08:59 Flush - Normal Saline IVF 10 ml Q12HR MANSI Administration Sotalol HCl 160 mg 06/09/19 21:00 06/11/19 08:57 Betapace PO 160 mg BID MANSI Administration Spironolactone 25 mg 06/10/19 09:00 06/11/19 08:58 Aldactone PO 25 mg DAILY MANSI Administration - Exam General Appearance: NAD Eye: PERRL, anicteric sclera ENT: normocephalic atraumatic, moist mucosa Neck: supple, symmetric, no lymphadenopathy Heart: no murmur, no gallops, no rubs Respiratory: CTAB, no ronchi, no tachypnea, rales, wheezes (Faint scattered) Gastrointestinal: soft, non-tender, non-distended, no guarding, no rigidity Extremities: no clubbing, no edema Skin: no lesions, no rashes Neurological: cranial nerve grossly intact, no focal deficits Musculoskeletal: generalized weakness Psychiatric: normal behavior, somnolent Hosp A/P (1) COPD exacerbation Code(s): J44.1 - CHRONIC OBSTRUCTIVE PULMONARY DISEASE W (ACUTE) EXACERBATION Status: Acute (2) Afib Code(s): I48.91 - UNSPECIFIED ATRIAL FIBRILLATION Status: Acute (3) CHF (congestive heart failure), NYHA class IV Code(s): I50.9 - HEART FAILURE, UNSPECIFIED Status: Acute (4) Pleural effusion Code(s): J90 - PLEURAL EFFUSION, NOT ELSEWHERE CLASSIFIED Status: Acute (5) Respiratory failure Code(s): J96.90 - RESPIRATORY FAILURE, UNSP, UNSP W HYPOXIA OR HYPERCAPNIA Status: Acute (6) Respiratory failure, acute and chronic Code(s): J96.20 - ACUTE AND CHR RESP FAILURE, UNSP W HYPOXIA OR HYPERCAPNIA Status: Acute - Plan Plan: IMCU, stable for medical unit telemetry pulmonology/critical-care consultation, recommendations appreciated cardiology consultation, recommendations appreciated pulmonary specific antibiotics with infiltrates seen on CT scan of the chest IV diuretic therapy with IV Lasix cardiomyopathy regimen echocardiogram continue other home medications as able blood sugar control blood pressure control DVT prophylaxis G.I. prophylaxis Disposition: patient improving on maximal medical therapy. Plan will be for discharge home with home healthcare in the next 2 to 3 days pending clinical improvement.
[2019-06-11] MEDS ORDERED: Loperamide HCl 1 MG/7.5 ML UDCUP PO PRN (16:51)
[2019-06-11] MEDS ORDERED: Magnesium 2 GM/50 ML 2 GM in Premix Bag 1 BAG IVPB SCH (17:00)
--- NOTE | 2019-06-11 17:15 | PRG ---
DATE OF SERVICE: 06/11/2019 SERVICE: Pulmonary medicine. INTERVAL HISTORY: The patient is doing really well from respiratory standpoint. She is breathing much more comfortably. She denies any current fevers, chills, or overnight events. Otherwise, there has been no interval change to her condition. She is having some diarrhea, which is chronic for her. She is specifically requesting Imodium, which she frequently takes at home. PHYSICAL EXAMINATION: VITAL SIGNS: Afebrile. Pulse 80, blood pressure 138/89, respirations 23, saturation 92%, currently on 2 L nasal cannula. GENERAL: The patient is awake and alert, in no apparent distress. LUNGS: Decent air entry. Dependent crackles are present. No prolonged expiratory phase appreciated. HEART: Normal rate and regular. ABDOMEN: Soft, nontender, nondistended. Bowel sounds are positive. MUSCULOSKELETAL: No cyanosis or clubbing. There is trace to 1+ pitting throughout in the bilateral lower extremities, but a little worse at the hips. LABORATORY DATA: Basic metabolic profile is completely unremarkable. Potassium 4.0, magnesium 1.8. Respiratory virus panel is unremarkable. IMAGING: Echocardiogram demonstrates 20% to 25% ejection fraction with 1/3 diastolic dysfunction. Right ventricular heart pressures are elevated. ASSESSMENT: 1. Acute on chronic hypoxic respiratory failure. 2. Chronic obstructive pulmonary disease with mild exacerbation. 3. Pulmonary hypertension, likely secondary to left heart disease. 4. Obstructive sleep apnea, under excellent control with CPAP therapy. 5. Acute on chronic systolic and diastolic heart failure. 6. Hypokalemia. DISCUSSION AND PLAN: I will continue to diurese the patient through time. We will provide her with Imodium to help with her diarrhea. Magnesium will be replaced. At this point, she is stable for transition out of the [facility] to the telemetry unit. Critical Care will follow for the time being. Job ID: [id number]
[2019-06-11] MEDS: Loperamide HCl 2 MG CAP PO PRN (18:06)
[2019-06-12 05:17] LABS: Anion Gap 12 mmol/L (10-20); BUN (Urea Nitrogen) 28 mg/dL (9.8-20.1); Calc. Creatinine Clearance 71 mL/min (70-130); Calcium 8.9 mg/dL (7.8-10.44); Carbon Dioxide 33 mmol/L (23-31); Chloride 100 mmol/L (98-107); Estimated GFR-MDRD 62; Glucose 102 mg/dL (83-110); Magnesium 2.2 mg/dL (1.6-2.6); Potassium 3.7 mmol/L (3.5-5.1); Sodium 141 mmol/L (136-145)
[2019-06-12] MEDS: Furosemide 40 MG/4 ML VIAL SLOW IVP SCH (05:58)
[2019-06-12] MEDS: Sotalol HCl 80 MG TAB PO SCH ×2 (08:28→21:42)
[2019-06-12] MEDS: Carvedilol 6.25 MG TAB PO SCH ×2 (08:29→17:22)
[2019-06-12] MEDS: Lisinopril 5 MG TAB PO SCH ×2 (08:29→21:44)
[2019-06-12] MEDS: Gabapentin 300 MG CAP PO SCH ×3 (08:29→21:43)
[2019-06-12] MEDS: Spironolactone 25 MG TAB PO SCH (08:29)
[2019-06-12] MEDS: predniSONE 20 MG TAB PO SCH (08:30)
[2019-06-12] MEDS: Azithromycin 500 MG in Sodium Chloride 0.9% 250 ML 250 ML IVPB SCH (08:30)
[2019-06-12] MEDS: Lactinex Tablet PO SCH (08:30)
[2019-06-12] MEDS: FLUoxetine HCl 20 MG CAP PO SCH ×2 (08:30→21:44)
[2019-06-12] MEDS: Apixaban 5 MG TAB PO SCH ×2 (08:30→21:44)
[2019-06-12] MEDS: Mometasone/Formoterol 120 PUFF INHALER INH SCH ×2 (08:30→21:06)
[2019-06-12] MEDS: Famotidine 20 MG TAB PO SCH ×2 (08:30→21:43)
--- NOTE | 2019-06-12 09:17 | PRG ---
DATE OF SERVICE: 06/12/2019 SUBJECTIVE: Ms. Andersen is doing well, no complaints. She feels better. OBJECTIVE: VITAL SIGNS: Her blood pressure is 153/97, pulse is in the 80s. LUNGS: Clear. CARDIAC: Normal S1, normal S2. ABDOMEN: Soft, nontender. EXTREMITIES: There is no edema. ASSESSMENT: 1. Congestive heart failure, systolic, acute on chronic, improving. 2. Hypertension. PLAN: 1. Increase carvedilol. 2. ?try Entresto as an outpatient, cannot do that now. She is already on DARRYN inhibitors. Dr. Yang to return tomorrow. Job ID: [id number]
[2019-06-12] MEDS: cefTRIAXone\\ROCEPHIN 2 GM in Sodium Chloride 0.9% 100 ML IVPB SCH (10:12)
--- NOTE | 2019-06-12 10:50 | PDOC.HOSPP ---
- Subjective Subjective: Seen and examined. Patient tells me that she slept well with her CPAP, except oxygen overnight. Patient is less somnolent this a.m. Patient breathing comfortably on low-flow nasal cannula. No acute complaints. All questions answered in detail. I recommended at this point the patient improve her mobility and spend some time out of bed in the chair and working hundred physical strength. If patient continues to physically improve may plan for discharge home with home healthcare in the next 24 to 48 hours. - Objective Vital Signs & Weight: Vital Signs (12 hours) Temp BP Pulse Ox 06/12/19 08:29 153/97 H 06/12/19 08:28 153/97 H 06/12/19 08:00 94 L 06/12/19 04:00 97.7 F 06/12/19 01:33 93 L 06/11/19 23:46 98.3 F Weight Weight 180 lb 14.4 oz Most Recent Monitor Data Heart Rate from ECG 81 NIBP 144/78 NIBP BP-Mean 100 Respiration from ECG 27 SpO2 96 I&O: 06/11/19 06/12/19 06/13/19 06:59 06:59 06:59 Intake Total 1954 2140 Output Total 2900 1900 Balance -946 240 Result Diagrams: 06/10/19 02:51 06/12/19 04:07 Radiology Reviewed by me: Yes Hospitalist ROS - Review of Systems All other systems reviewed; all pertinent +/- noted in HPI/Subj - Medication Medications: Active Medications Generic Name Dose Route Start Last Admin Trade Name Freq PRN Reason Stop Dose Admin Acidophilus 1 tab 06/12/19 09:00 06/12/19 08:30 Floranex PO 1 tab DAILY MANSI Administration Apixaban 5 mg 06/09/19 21:00 06/12/19 08:30 Eliquis PO 5 mg BID MANSI Administration Famotidine 20 mg 06/09/19 21:00 06/12/19 08:30 Pepcid PO 20 mg BID MANSI Administration Fluoxetine HCl 20 mg 06/09/19 21:00 06/12/19 08:30 Prozac PO 20 mg BID MANSI Administration Furosemide 40 mg 06/12/19 06:00 06/12/19 05:58 Lasix SLOW IVP 40 mg 0600 MANSI Administration Gabapentin 300 mg 06/09/19 21:00 06/12/19 08:29 Neurontin PO 300 mg TID MANSI Administration Azithromycin 500 mg/ Sodium 250 mls @ 250 mls/hr 06/10/19 09:00 06/12/19 08: 30 Chloride IVPB 250 mls Q24HR MANSI Administration Ceftriaxone Sodium 2 gm/ 100 mls @ 100 mls/hr 06/10/19 10:00 06/12/19 10:12 Sodium Chloride IVPB 100 mls Q24HR MANSI Administration Lisinopril 5 mg 06/09/19 21:00 06/12/19 08:29 Zestril PO 5 mg BID MANSI Administration Loperamide HCl 2 mg 06/11/19 18:01 06/11/19 18:06 Imodium PO 2 mg Q4H PRN Administration Diarrhea/Loose Stools Mometasone Furoate/Formoterol Fumar 2 puff 06/10/19 06:30 06/12/19 08:30 Dulera 200 Mcg/5 Mcg Inhaler INH 2 puff BID-RT MANSI Administration Prednisone 20 mg 06/11/19 08:00 06/12/19 08:30 Prednisone PO 06/14/19 08:01 20 mg QAM-WM MANSI Administration Sodium Chloride 10 ml 06/10/19 09:00 06/12/19 10:13 Flush - Normal Saline IVF 10 ml Q12HR MANSI Administration Sotalol HCl 160 mg 06/09/19 21:00 06/12/19 08:28 Betapace PO 160 mg BID MANSI Administration Spironolactone 25 mg 06/10/19 09:00 06/12/19 08:29 Aldactone PO 25 mg DAILY MANSI Administration - Exam General Appearance: NAD, awake alert Eye: PERRL, anicteric sclera ENT: normocephalic atraumatic, moist mucosa Neck: supple, symmetric Heart: no murmur, no gallops, no rubs Respiratory: no rales, no ronchi, wheezes (Improving) Gastrointestinal: soft, non-tender, no guarding, no rigidity Extremities: no clubbing, no edema Skin: no lesions, no rashes Neurological: cranial nerve grossly intact, no focal deficits Musculoskeletal: generalized weakness Psychiatric: normal affect, oriented to person, oriented to place Hosp A/P (1) COPD exacerbation Code(s): J44.1 - CHRONIC OBSTRUCTIVE PULMONARY DISEASE W (ACUTE) EXACERBATION Status: Acute (2) Afib Code(s): I48.91 - UNSPECIFIED ATRIAL FIBRILLATION Status: Acute (3) CHF (congestive heart failure), NYHA class IV Code(s): I50.9 - HEART FAILURE, UNSPECIFIED Status: Acute (4) Pleural effusion Code(s): J90 - PLEURAL EFFUSION, NOT ELSEWHERE CLASSIFIED Status: Acute (5) Respiratory failure Code(s): J96.90 - RESPIRATORY FAILURE, UNSP, UNSP W HYPOXIA OR HYPERCAPNIA Status: Acute (6) Respiratory failure, acute and chronic Code(s): J96.20 - ACUTE AND CHR RESP FAILURE, UNSP W HYPOXIA OR HYPERCAPNIA Status: Acute - Plan Plan: IMCU, stable for medical unit telemetry pulmonology/critical-care consultation, recommendations appreciated cardiology consultation, recommendations appreciated pulmonary specific antibiotics with infiltrates seen on CT scan of the chest diuretic therapy Lasix cardiomyopathy regimen echocardiogram continue other home medications as able blood sugar control blood pressure control DVT prophylaxis G.I. prophylaxis Disposition: patient improving on maximal medical therapy. Plan will be for discharge home with home healthcare in the next 24 to 48 hours pending clinical improvement.
[2019-06-12] MEDS ORDERED: Potassium Chloride 20 MEQ TAB PO SCH (12:00)
--- NOTE | 2019-06-12 15:40 | PRG ---
DATE OF SERVICE: 06/12/2019 SERVICE: Pulmonary Medicine. INTERVAL HISTORY: The patient is doing really quite well from respiratory standpoint. She is on 2 L nasal cannula, which is her home dose of oxygen. She denies any current fevers or chills. There were no significant overnight events. PHYSICAL EXAMINATION: VITAL SIGNS: Afebrile, pulse 80, blood pressure 144/78, respirations 18, and saturation 96%, currently on 2 L nasal cannula. GENERAL: The patient is awake and alert, in no apparent distress. LUNGS: Good air entry. Minimal dependent crackles are present. There is no prolonged expiratory phase or wheezing appreciated. HEART: Normal rate and regular. ABDOMEN: Soft, nontender, and nondistended. Bowel sounds are positive. MUSCULOSKELETAL: No cyanosis or clubbing. There is no pitting in the bilateral lower extremities today. NEUROLOGIC: Grossly nonfocal. LABORATORY DATA: Basic metabolic profile is completely unremarkable with a normal magnesium of 2.2 and potassium 3.7. Respiratory virus panel was unremarkable. ASSESSMENT: 1. Acute on chronic hypoxic respiratory failure, returned to baseline. 2. Chronic obstructive pulmonary disease with mild exacerbation, resolved. 3. Pulmonary hypertension, likely secondary to left heart disease. 4. Obstructive sleep apnea, under excellent control with CPAP therapy. 5. Acute on chronic systolic and diastolic heart failure, returning to euvolemia. 6. Hypokalemia, resolved. DISCUSSION AND PLAN: I will replace her one dose of potassium today. At this point, she is stable for transition out of the ICU to the telemetry unit. Pulmonary will continue to follow for the time being. Job ID: [id number]
[2019-06-12] MEDS: Loperamide HCl 2 MG CAP PO PRN (18:48)
[2019-06-13] MEDS: Furosemide 40 MG/4 ML VIAL SLOW IVP SCH (05:25)
[2019-06-13] MEDS: Mometasone/Formoterol 120 PUFF INHALER INH SCH (07:57)
[2019-06-13] MEDS: Lactinex Tablet PO SCH (09:14)
[2019-06-13] MEDS: Sotalol HCl 80 MG TAB PO SCH (09:14)
[2019-06-13] MEDS: Apixaban 5 MG TAB PO SCH (09:14)
[2019-06-13] MEDS: Lisinopril 5 MG TAB PO SCH (09:15)
[2019-06-13] MEDS: Gabapentin 300 MG CAP PO SCH ×2 (09:15→14:04)
[2019-06-13] MEDS: Famotidine 20 MG TAB PO SCH (09:15)
[2019-06-13] MEDS: predniSONE 20 MG TAB PO SCH (09:15)
[2019-06-13] MEDS: Carvedilol 6.25 MG TAB PO SCH (09:15)
[2019-06-13] MEDS: FLUoxetine HCl 20 MG CAP PO SCH (09:16)
[2019-06-13] MEDS: Spironolactone 25 MG TAB PO SCH (09:16)
[2019-06-13] MEDS: Azithromycin 500 MG in Sodium Chloride 0.9% 250 ML 250 ML IVPB SCH (10:21)
[2019-06-13] MEDS: cefTRIAXone\\ROCEPHIN 2 GM in Sodium Chloride 0.9% 100 ML IVPB SCH (11:57)
[2019-06-13 14:57] VITALS: BMI 25.2
[2019-06-13 16:12] VITALS: BP 141/94; TEMP 97.6
--- NOTE | 2019-06-13 17:27 | PDOC.CPN ---
- Subjective Date: 06/13/19 Time: 13:15 Interval history: She is doing well. Breathing back to baseline. She is on Home O2 at 2L. - Review of Systems General: denies: fever/chills, weight/appetite/sleep changes, night sweats, fatigue Respiratory: denies: cough, congestion, shortness of breath, exercise intolerance Cardiovascular: denies: chest pain, palpitation, edema, paroxysmal nocturnal dyspnea, orthopnea Gastrointestinal: denies: nausea, vomiting, diarrhea, constipation, abd pain, GI bleeding Musculoskeletal: reports: pain. denies: tenderness, stiffness, swelling, arthritis/arthralgias Neurological: denies: numbness, syncope, seizure, weakness - Objective Allergies/Adverse Reactions: Allergies Allergy/AdvReac Type Severity Reaction Status Date / Time amoxicillin [From Augmentin] AdvReac Verified 06/09/19 22:44 clavulanic acid AdvReac Verified 12/25/18 01:58 [From Augmentin] Vital Signs & Weight: Vital Signs Temp Pulse Resp BP BP Pulse Ox 06/13/19 15:55 97.6 F 79 20 141/94 H 95 06/13/19 11:52 97.5 F L 81 18 100/66 94 L 06/13/19 09:15 80 142/84 H 06/13/19 09:14 80 06/13/19 08:59 97.0 F L 80 18 138/89 97 06/13/19 07:57 80 12 Admit Weight 188 lb 3 oz Weight 176 lb - Physical Exam General: alert & oriented x3 HEENT: mucus membranes moist Neck: supple neck Cardiac: regular rate and rhythm Lungs: clear to auscultation Neuro: grossly intact Abdomen: active bowel sounds Extremities: no edema Skin: clear Musculoskeletal: no pain - Labs Result Diagrams: 06/10/19 02:51 06/12/19 04:07 Troponin/CKMB Troponin I Less than 0.010 ng/mL (< 0.028) 06/10/19 09:05 - Telemetry Sinus rhythms and dysrhythmias: sinus rhythm - Assessment/Plan Assessment/Plan: 1. Acute on chronic systolic CHF 2. Reduced EF at 15-20% 3. HTN PLAN: - PO lasix - CV stable, may discharge any time from cardiac perspective.
--- NOTE | 2019-06-14 14:10 | DIS ---
DATE OF ADMISSION: 06/09/2019 DATE OF DISCHARGE: 06/13/2019 DISCHARGE DIAGNOSES: 1. Acute on chronic hypoxic respiratory failure. 2. Chronic obstructive pulmonary disease exacerbation. 3. Acute on chronic systolic congestive heart failure. 4. Chronic congestive heart failure, Desha heart Association Class 4. 5. Pleural effusion. 6. Atrial fibrillation. 7. Ischemic cardiomyopathy with an ejection fraction of 20% to 25%. 8. [id number] aortic regurgitation. 9. Elevated right ventricular systolic pressure at 58 mmHg. 10. Community-acquired pneumonia. 11. Hypokalemia. HISTORY OF PRESENT ILLNESS: This patient is a 74-year-old female with significant ischemic cardiomyopathy who presented via the emergency department with 3 to 4 days of increasing shortness of breath and dyspnea on exertion. She had some associated lower extremity edema. Her initial workup was notable for normal white count. ABGs showing a pH 7.29, pCO2 of 37, PO2 of 174 on 50% FiO2 with elevated AA gradient. Potassium is slightly low at 3.4. CT of the chest showed extensive reflux into the inferior vena cava. Four-chamber dilatation of the heart, small pleural effusion, pulmonary vascular congestion with some concern for infiltrates on the right consistent with possible infiltrate in the middle lobe. HOSPITAL COURSE: The patient was admitted to the hospital with what appeared to be decompensated congestive heart failure resulting in acute on chronic hypoxic respiratory failure. She also was believed to have an exacerbation of her COPD and pneumonia. She was started on supplemental respiratory support including BiPAP as needed, steroids, and antibiotics with Rocephin and azithromycin for community-acquired pneumonia. She was diuresed and had a followup echocardiogram with ejection fraction of 20% to 25% with grade 1/3 diastolic dysfunction, [id number] aortic regurgitation, mild tricuspid regurgitation as well as some pulmonary hypertension related to the heart failure. She responded to treatment and steroids were deescalated fairly quickly and patient was moved to the medical floor where she continued to do well. She was felt to be appropriate for discharge from [facility] and the patient herself was eager for discharge and felt that she was back to her baseline. On the day of discharge, temperature was 97.6, pulse 79, respirations 20, O2 saturation was 95% on room air, BP was 141/94. She was awake and alert. Heart was regular rate and rhythm without murmurs. Lungs were clear to auscultation bilaterally. Abdomen was soft, nontender, and nondistended. Positive bowel sounds. No masses and no organomegaly. Extremities had no significant edema. DISPOSITION: Patient is discharged to home. ACTIVITY: As tolerated. She will remain on a heart healthy diet. MEDICATIONS: She will continue with home oxygen as before. She will have carvedilol at an increased dose of 12.5 mg b.i.d. She will continue sotalol 160 mg b.i.d.; magnesium 400 mg b.i.d.; loperamide p.r.n.; glucosamine chondroitin 1 p.o. b.i.d.; ferrous sulfate 325 daily; gabapentin 300 mg one q.a.m., one q.noon, two q.p.m.; Lasix 40 mg b.i.d.; folic acid 40 mg daily; fluoxetine 20 mg b.i.d.; Nexium 40 mg b.i.d.; lisinopril 5 mg b.i.d.; Aldactone 25 mg daily; diazepam 5 mg at bedtime; Symbicort 160-4.5 two puffs inhaled b.i.d.; Eliquis 5 mg b.i.d.; Premarin 1 p.o. daily; and melatonin 20 mg at bedtime. FOLLOWUP: She is to follow up with Dr. Eduar Morris on 06/28/2019 at 1:[address] Dieudonne Damian at next available appointment. Will follow up at cardiac rehab and can return to the hospital at any time if there is a need to do so. TIME SPENT: Total time in discharge activity was 36 minutes. Job ID: [id number]
== END 2019-06-13 16:49 | disposition home or self-care (01) | DRG 291 ==
LOC: ERS 17:17 → IMCU/EMU 22:23 → 2NO 06-12 17:02
PROVIDERS: ADMIT Internal Medicine; ATTEND Internal Medicine
PROC: 5A09357 Assistance with Respiratory Ventilation, Less than 24 Consecutive Hours, Continuous Positive Airway Pressure (ICD-10-PCS; principal; 2019-06-09)
DX: I11.0 Hypertensive heart disease with heart failure (principal); J96.21 Acute and chronic respiratory failure with hypoxia; Z66 Do not resuscitate; J18.9 Pneumonia, unspecified organism; J44.1 Chronic obstructive pulmonary disease with (acute) exacerbation; J44.0 Chronic obstructive pulmonary disease with (acute) lower respiratory infection; I50.43 Acute on chronic combined systolic (congestive) and diastolic (congestive) heart failure; I25.10 Atherosclerotic heart disease of native coronary artery without angina pectoris; I49.5 Sick sinus syndrome; I27.20 Pulmonary hypertension, unspecified; I48.0 Paroxysmal atrial fibrillation; I25.5 Ischemic cardiomyopathy; I27.29 Other secondary pulmonary hypertension; I42.0 Dilated cardiomyopathy; E87.6 Hypokalemia; Z88.1 Allergy status to other antibiotic agents; Z88.8 Allergy status to other drugs, medicaments and biological substances; Z99.81 Dependence on supplemental oxygen; Z95.0 Presence of cardiac pacemaker; Z95.5 Presence of coronary angioplasty implant and graft; Z79.899 Other long term (current) drug therapy; Z79.01 Long term (current) use of anticoagulants
CPT/HCPCS: 36415; 71045; 71275; 80048; 80053; 82550; 82805; 83735; 83880; 84145; 84484; 85025; 85610; 85730; 87633; 93005; 93306; 93798; 94660; J0456; J0696; J1940; J2543; J2920; J3475; J3490; J7050; J7512; Q9967